=== PATIENT | female | born 1965 | race Two or more races ===

== ENCOUNTER 2017-10-12 14:13 | Outpatient (CLI) | payer OTHER ==
[~2017-10-12 14:13] MED LIST: CEFTIN500 MG PO; FLONASE16 G1 NS; MUCINEX600 MG PO; SYMBICORT 16010.2 GM IH
== END 2017-10-12 14:27 | disposition home or self-care (01) ==
LOC: SONOGRAMA 14:13
DX: N64.4 Mastodynia (principal)

== ENCOUNTER 2017-10-14 14:23 | Outpatient (CLI) | payer OTHER | END 2017-10-14 14:27 | disposition home or self-care (01) | LOC: SONOGRAMA 14:23 | DX: D25.9 Leiomyoma of uterus, unspecified (principal) ==

== ENCOUNTER 2017-10-24 14:20 | Outpatient (CLI) | payer OTHER | END 2017-10-25 07:44 | disposition home or self-care (01) | LOC: SONOGRAMA 14:20 | DX: N60.11 Diffuse cystic mastopathy of right breast (principal); N60.12 Diffuse cystic mastopathy of left breast; N63.42 Unspecified lump in left breast, subareolar; N63.11 Unspecified lump in the right breast, upper outer quadrant ==

== ENCOUNTER 2018-12-26 11:01 | Outpatient (CLI) | payer OTHER | END 2018-12-26 11:14 | disposition home or self-care (01) | LOC: MAMO-SONO 11:01 | DX: Z12.31 Encounter for screening mammogram for malignant neoplasm of breast (principal); N60.11 Diffuse cystic mastopathy of right breast; N60.12 Diffuse cystic mastopathy of left breast ==

== ENCOUNTER 2019-02-05 11:01 | Outpatient (CLI) | payer OTHER | END 2019-02-05 11:18 | disposition home or self-care (01) | LOC: NUCLEAR 11:01 | DX: M81.0 Age-related osteoporosis without current pathological fracture (principal) ==

== ENCOUNTER 2019-07-26 11:20 | Outpatient (CLI) | payer OTHER | END 2019-07-26 12:00 | disposition home or self-care (01) | LOC: RAD 11:20 | DX: M54.5 Low back pain (principal); M79.651 Pain in right thigh ==

== ENCOUNTER 2020-07-09 09:23 | Outpatient (CLI) | payer OTHER | END 2020-07-09 09:39 | disposition home or self-care (01) | LOC: MAMO-SONO 09:23 | PROVIDERS: ATTEND Obstetrics & Gynecology | DX: Z12.31 Encounter for screening mammogram for malignant neoplasm of breast (principal); N60.11 Diffuse cystic mastopathy of right breast; N60.12 Diffuse cystic mastopathy of left breast ==

== ENCOUNTER → 2020-12-05 | Outpatient (CLI) | payer OTHER | END | disposition home or self-care (01) | LOC: TOM 13:49 | PROVIDERS: ATTEND Radiology Diagnostic Radiology | DX: S92.232A Displaced fracture of intermediate cuneiform of left foot, initial encounter for closed fracture (principal); S92.322A Displaced fracture of second metatarsal bone, left foot, initial encounter for closed fracture ==

== ENCOUNTER → 2020-12-12 | Outpatient (CLI) | payer OTHER | END | disposition home or self-care (01) | LOC: RAD 13:09 | PROVIDERS: ATTEND Specialist | DX: M79.672 Pain in left foot (principal); M25.572 Pain in left ankle and joints of left foot ==

== ENCOUNTER 2020-12-15 11:45 | Day surgery (SDC) | payer OTHER | END 2020-12-15 21:17 | disposition home or self-care (01) | LOC: CIR.AMB 11:45 | PROVIDERS: ATTEND Orthopaedic Surgery | DX: S92.312A Displaced fracture of first metatarsal bone, left foot, initial encounter for closed fracture (principal); S92.322A Displaced fracture of second metatarsal bone, left foot, initial encounter for closed fracture; S92.332A Displaced fracture of third metatarsal bone, left foot, initial encounter for closed fracture; S92.352A Displaced fracture of fifth metatarsal bone, left foot, initial encounter for closed fracture; S92.242A Displaced fracture of medial cuneiform of left foot, initial encounter for closed fracture; S92.222A Displaced fracture of lateral cuneiform of left foot, initial encounter for closed fracture; Z20.822 Contact with and (suspected) exposure to COVID-19 | CPT/HCPCS: 28485 ×4; C1776 ×4 ==

== ENCOUNTER 2021-02-10 11:44 | Outpatient (CLI) | payer OTHER ==
[2021-03-10] MEDS ORDERED: LIPITOR20 MG PO (14:46)
== END 2021-02-10 12:09 | disposition home or self-care (01) ==
LOC: RAD 11:44
PROVIDERS: ATTEND Orthopaedic Surgery
DX: S93.31 Subluxation and dislocation of tarsal joint (principal)

== ENCOUNTER 2021-03-17 06:00 | Day surgery (SDC) | payer OTHER ==
[~2021-03-17 06:00] MED LIST changes: +LIPITOR20 MG PO
== END 2021-03-17 13:10 | disposition home or self-care (01) ==
LOC: CIR.AMB 06:00
PROVIDERS: ATTEND Orthopaedic Surgery
DX: S93.31 Subluxation and dislocation of tarsal joint (principal); T84.84XA Pain due to internal orthopedic prosthetic devices, implants and grafts, initial encounter; Z20.822 Contact with and (suspected) exposure to COVID-19

== ENCOUNTER 2021-06-03 08:00 | Outpatient (CLI) | payer OTHER | END 2021-06-03 08:30 | disposition home or self-care (01) | LOC: PPH VACUNA 08:00 | DX: Z23 Encounter for immunization (principal) ==

== ENCOUNTER → 2021-07-03 | Outpatient (CLI) | payer OTHER | END | disposition home or self-care (01) | LOC: NUCLEAR 13:00 | PROVIDERS: ATTEND Orthopaedic Surgery | DX: M81.0 Age-related osteoporosis without current pathological fracture (principal) ==

== ENCOUNTER → 2021-07-28 | Outpatient (CLI) | payer OTHER | END | disposition home or self-care (01) | LOC: MAMO-SONO 12:27 | PROVIDERS: ATTEND Obstetrics & Gynecology Gynecology | DX: N60.02 Solitary cyst of left breast (principal); N60.01 Solitary cyst of right breast; Z12.31 Encounter for screening mammogram for malignant neoplasm of breast; N64.4 Mastodynia ==

== ENCOUNTER 2023-05-31 12:01 | Outpatient (CLI) | payer OTHER | END 2023-05-31 12:30 | disposition home or self-care (01) | LOC: SONOGRAMA 12:01 | PROVIDERS: ATTEND Physical Medicine & Rehabilitation Hospice and Palliative Medicine | DX: M25.511 Pain in right shoulder (principal); M75.41 Impingement syndrome of right shoulder ==

== ENCOUNTER 2023-06-23 13:59 | Outpatient (CLI) | payer OTHER | END 2023-06-23 14:04 | disposition home or self-care (01) | LOC: RAD 13:59 | PROVIDERS: ATTEND Orthopaedic Surgery | DX: M25.511 Pain in right shoulder (principal); M75.111 Incomplete rotator cuff tear or rupture of right shoulder, not specified as traumatic ==

== ENCOUNTER 2023-07-19 13:25 | Outpatient (CLI) | payer OTHER | END 2023-07-19 13:26 | disposition home or self-care (01) | LOC: NUCLEAR 13:25 | PROVIDERS: ATTEND Obstetrics & Gynecology Gynecology | DX: M81.0 Age-related osteoporosis without current pathological fracture (principal); M85.80 Other specified disorders of bone density and structure, unspecified site ==

== ENCOUNTER 2023-08-18 14:08 | Outpatient (CLI) | payer OTHER | END 2023-08-18 14:09 | disposition home or self-care (01) | LOC: MAMO-SONO 14:08 | PROVIDERS: ATTEND Obstetrics & Gynecology Gynecology | DX: Z12.31 Encounter for screening mammogram for malignant neoplasm of breast (principal); N60.19 Diffuse cystic mastopathy of unspecified breast; N64.4 Mastodynia; N63.0 Unspecified lump in unspecified breast ==

== ENCOUNTER 2023-09-19 11:30 | Outpatient (CLI) | payer OTHER | END 2023-09-20 07:46 | disposition home or self-care (01) | LOC: RAD 11:30 | DX: M25.571 Pain in right ankle and joints of right foot (principal) ==

== ENCOUNTER 2024-07-19 08:35 | Outpatient (CLI) | payer OTHER | END 2024-07-19 08:41 | disposition home or self-care (01) | LOC: SONOGRAMA 08:35 | PROVIDERS: ATTEND Internal Medicine Gastroenterology | DX: R16.0 Hepatomegaly, not elsewhere classified (principal) ==

== ENCOUNTER 2024-08-24 11:18 | Outpatient (CLI) | payer OTHER | END 2024-08-24 12:56 | disposition home or self-care (01) | LOC: MAMO-SONO 11:18 | DX: N63.0 Unspecified lump in unspecified breast (principal); N64.4 Mastodynia; N60.19 Diffuse cystic mastopathy of unspecified breast; R92.2 Inconclusive mammogram; Z12.31 Encounter for screening mammogram for malignant neoplasm of breast ==

== ENCOUNTER 2025-03-14 14:19 | Outpatient (CLI) | payer OTHER | END 2025-03-14 14:33 | disposition home or self-care (01) | LOC: RAD 14:19 | PROVIDERS: ATTEND Orthopaedic Surgery | DX: M25.562 Pain in left knee (principal) ==

== ENCOUNTER 2025-05-23 11:43 | Outpatient (CLI) | payer OTHER | END 2025-05-24 09:14 | disposition home or self-care (01) | LOC: RAD 11:43 | PROVIDERS: ATTEND Orthopaedic Surgery | DX: M79.641 Pain in right hand (principal); M79.642 Pain in left hand ==

== ENCOUNTER 2025-08-05 12:53 | Outpatient (CLI) | payer OTHER | END 2025-08-05 12:59 | disposition home or self-care (01) | LOC: NUCLEAR 12:53 | PROVIDERS: ATTEND Orthopaedic Surgery | DX: I11.9 Hypertensive heart disease without heart failure (principal) ==

== ENCOUNTER 2025-08-19 08:20 | Outpatient (CLI) | payer OTHER ==
[2025-08-19 10:03] LABS: BASO % 0.9 % (0.1-1.2); EOS # 0.29 (0.04-0.54); EOS % 4.3 % (0.7-7.0); LYMPH # 2.02 (1.18-3.74); LYMPH % 30.1 % (19.3-53.1); MEAN PLATELET VOLUME 10.70 fl (9.4-12.4); MONO # 0.38 (0.24-0.82); MONO % 5.7 % (4.7-12.5); NEUT # 3.93 (1.56-6.13); NEUT % 58.7 % (34.0-71.1); RED CELL DISTRIBUTION WIDTH 14.6 % (11.6-14.4)
[2025-08-19 10:19] LABS: URINE APPEARANCE Cloudy; URINE BILIRRUBIN Negative (NEGATIVE); URINE BLOOD Negative; URINE COLOR Yellow; URINE GLUCOSE Negative (NEGATIVE); URINE KETONE Negative (NEGATIVE); URINE LEUKOCYTE Small; URINE NITRATE Negative; URINE PROTEIN Negative (NEGATIVE); URINE UROBILINOGEN 0.2 E.U./dl
[2025-08-19 10:31] LABS: URINE BACTERIA 4.7 uL (0.0-1933); URINE EPITHELIAL CELLS 2.3 uL (0.0-38.8); URINE WBC 27.0 uL (0.0-23.2)
[2025-08-19 10:33] LABS: INR 0.98
[2025-08-19 10:38] LABS: URINE RBC 1.6 uL (0.0-20.8)
[2025-08-19 10:39] LABS: URINE CAST 0.14 uL (0.0-1.40)
[2025-08-19 10:50] LABS: COL EPI 100 SECONDS (82-175)
[2025-08-19 11:08] LABS: ALT/SGPT 29.0 U/L (12-78); AST/SGOT 21.0 U/L (15-37); BILIRUBIN TOTAL 0.55 mg/dL (0.3-1.2); BUN CREA RATIO 26.0 (7.0-25.0); CREATININE SERUM 0.54 mg/dL (0.55-1.02); GFR 115.95; GLOBULINA 2.8 G/DL (2.4-3.5); GLUCOSE FASTING 75.0 mg/dL (65-100); OSMOLALITY SERUM 286.0 MOSM/KG (275-295)
== END 2025-08-19 08:32 | disposition home or self-care (01) ==
LOC: RAD 08:20
PROVIDERS: ATTEND Orthopaedic Surgery
DX: D64.9 Anemia, unspecified (principal); E88.89 Other specified metabolic disorders; D68.8 Other specified coagulation defects; N39.0 Urinary tract infection, site not specified; Z22.322 Carrier or suspected carrier of Methicillin resistant Staphylococcus aureus; E11.9 Type 2 diabetes mellitus without complications; Z76.89 Persons encountering health services in other specified circumstances